=== PATIENT | male | born 2000 | race Caucasian/White ===

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

== ENCOUNTER 2023-08-14 19:44 | Emergency (ER) | payer BC, OTHER ==
[2023-08-14] MEDS ORDERED: Tetracaine 0.5% PF 4 ML BOT ONE (19:56)
[2023-08-14] MEDS ORDERED: Fluorescein Opthalmic Strip ONE (19:56)
[2023-08-14] MEDS ORDERED: Boostrix 0.5 ML (Tdap) VIAL (>/=7 yrs of age) ONE (19:56)
[2023-08-14] MEDS ORDERED: Erythromycin Base 0.5% Ophth Oint 3.5 gm Tube ONE ×2 (20:20→20:21)
== END 2023-08-14 20:29 | disposition home or self-care (01) ==
LOC: MADERS 19:44
DX: T15.12XA Foreign body in conjunctival sac, left eye, initial encounter (principal); X58.XXXA Exposure to other specified factors, initial encounter
CPT/HCPCS: 65205; 90715